=== PATIENT | male | born 1950 | race Asian ===

== ENCOUNTER 2019-04-09 07:37 | Day surgery (SDC) | payer OTHER ==
[~2019-04-09] VITALS: Ht 175.3 cm; Wt 74.4 kg
[2019-04-09 08:22] VITALS: BP 155/76
[2019-04-09 11:23] VITALS: BP 118/79
== END 2019-04-09 11:15 | disposition home or self-care (01) ==
LOC: GI 07:37 → OR 09:00 → GI 10:00 → OR 10:00 → GI 11:15
DX: Z12.11 Encounter for screening for malignant neoplasm of colon (principal); D12.3 Benign neoplasm of transverse colon; D12.4 Benign neoplasm of descending colon; K63.89 Other specified diseases of intestine; K64.8 Other hemorrhoids; I10 Essential (primary) hypertension; I25.2 Old myocardial infarction; F17.210 Nicotine dependence, cigarettes, uncomplicated; Z79.82 Long term (current) use of aspirin; Z79.899 Other long term (current) drug therapy
CPT/HCPCS: 45378; J1200; J1610; J2250; J2310; J3010; J3490